=== PATIENT | male | born 1985 | race African-American/Black ===

== ENCOUNTER 2025-07-09 20:14 | Inpatient (IN) | payer SELFPAY ==
[2025-07-09] MEDS ORDERED: Dexamethasone 10 MG/ML VIAL ONE ×2 (20:49→20:58)
[2025-07-09] MEDS ORDERED: diphenhydrAMINE 50 MG/ML VIAL ONE (22:36)
[2025-07-10] MEDS ORDERED: Famotidine/PF 20 mg/2ml Vial ONE (00:41)
[2025-07-10 01:19] LABS: #Basophils 0.03 10x3/uL (0.0-0.2); #Eosinophils Less than 0.03 10x3/uL (0.0-0.7); #Monocytes 0.27 10x3/uL (0.11-0.59); #Neutrophils 12.74 10x3/uL (1.40-6.50); %Basophils 0.2 % (0.0-1.0); %Eosinophils 0.0 % (0.0-10.0); %Lymphocytes 4.7 % (21.0-51.0); %Monocytes 2.0 % (0.0-10.0); %Neutrophils 92.7 % (42.0-75.0); Hematocrit 52.6 % (42.0-52.0); Hemoglobin 18.3 g/dL (14.0-18.0); Mean Corpuscular Hemoglobin 32.6 pg (27.0-31.0); Mean Corpuscular Volume 93.6 fL (78.0-98.0); Platelet Count 291 10x3/uL (130-400); Red Blood Cell (RBC) Count 5.62 mill/uL (4.70-6.10); White Blood Cell (WBC) Count 13.74 10x3/uL (4.8-10.8)
[2025-07-10 01:36] LABS: ALT (SGPT) 16 U/L (Less than 45); AST (SGOT) 24 U/L (11-34); Albumin 3.5 g/dL (3.1-4.5); Alkaline Phosphatase 46 U/L (40-110); Anion Gap 16 mmol/L (10-20); BUN (Urea Nitrogen) 19 mg/dL (8.9-20.6); Bilirubin, Total 0.7 mg/dL (0.3-1.2); CK (CPK) 326 U/L (30-200); Calc. Creatinine Clearance 0 mL/min (70-130); Calcium 8.5 mg/dL (7.8-10.44); Carbon Dioxide 21 mmol/L (22-29); Chloride 101 mmol/L (98-107); Globulin 2.8 g/dL (2.4-3.5); Glucose 210 mg/dL (70-105); Potassium 3.8 mmol/L (3.5-5.1); Sodium 134 mmol/L (136-145)
[2025-07-10] MEDS ORDERED: Acetaminophen 325 MG TAB PO PRN (01:42)
[2025-07-10] MEDS ORDERED: Senokot S 8.6-50 MG TAB PO PRN (01:42)
[2025-07-10] MEDS ORDERED: Ondansetron PF 4 MG/2 ML Vial IVP PRN (01:42)
[2025-07-10 02:53] VITALS: BMI 24.3
[2025-07-10] MEDS: diphenhydrAMINE 50 MG/ML VIAL IVP SCH (03:20)
[2025-07-10 03:35] LABS: #Basophils Less than 0.03 10x3/uL (0.0-0.2); #Eosinophils Less than 0.03 10x3/uL (0.0-0.7); #Monocytes 0.25 10x3/uL (0.11-0.59); #Neutrophils 12.00 10x3/uL (1.40-6.50); %Basophils 0.2 % (0.0-1.0); %Eosinophils 0.1 % (0.0-10.0); %Lymphocytes 5.5 % (21.0-51.0); %Monocytes 1.9 % (0.0-10.0); %Neutrophils 91.7 % (42.0-75.0); Hematocrit 49.7 % (42.0-52.0); Hemoglobin 17.1 g/dL (14.0-18.0); Mean Corpuscular Hemoglobin 32.4 pg (27.0-31.0); Mean Corpuscular Volume 94.3 fL (78.0-98.0); Platelet Count 295 10x3/uL (130-400); Red Blood Cell (RBC) Count 5.27 mill/uL (4.70-6.10); White Blood Cell (WBC) Count 13.08 10x3/uL (4.8-10.8)
[2025-07-10 03:57] LABS: Anion Gap 14 mmol/L (10-20); BUN (Urea Nitrogen) 16 mg/dL (8.9-20.6); Calc. Creatinine Clearance 114 mL/min (70-130); Calcium 8.1 mg/dL (7.8-10.44); Carbon Dioxide 19 mmol/L (22-29); Chloride 104 mmol/L (98-107); Glucose 186 mg/dL (70-105); Potassium 3.8 mmol/L (3.5-5.1); Sodium 133 mmol/L (136-145)
[2025-07-10] MEDS ORDERED: predniSONE 20 MG TAB PO SCH (08:00)
[2025-07-10] MEDS: Famotidine 20 MG TAB PO SCH (08:35)
[2025-07-10] MEDS: Enoxaparin 40 MG (0.4 mL) SYRINGE SC SCH (08:35)
[2025-07-10] MEDS ORDERED: Calcium Carbonate 500 MG ChewTAB PO PRN (16:21)
[2025-07-10] MEDS: Mag-Al 1200 mg/1200 mg/30 ML UDCUP PO SCH (16:59)
[2025-07-10] MEDS: Calcium Carbonate 500 MG ChewTAB PO PRN (16:59)
[2025-07-10] MEDS: Melatonin 3 MG TAB PO PRN (21:38)
[2025-07-11 04:25] LABS: #Basophils Less than 0.03 10x3/uL (0.0-0.2); #Eosinophils Less than 0.03 10x3/uL (0.0-0.7); #Monocytes 0.81 10x3/uL (0.11-0.59); #Neutrophils 13.13 10x3/uL (1.40-6.50); %Basophils 0.1 % (0.0-1.0); %Eosinophils 0.0 % (0.0-10.0); %Lymphocytes 7.2 % (21.0-51.0); %Monocytes 5.4 % (0.0-10.0); %Neutrophils 86.8 % (42.0-75.0); Hematocrit 44.7 % (42.0-52.0); Hemoglobin 15.5 g/dL (14.0-18.0); Mean Corpuscular Hemoglobin 33.0 pg (27.0-31.0); Mean Corpuscular Volume 95.1 fL (78.0-98.0); Platelet Count 257 10x3/uL (130-400); Red Blood Cell (RBC) Count 4.70 mill/uL (4.70-6.10); White Blood Cell (WBC) Count 15.10 10x3/uL (4.8-10.8)
[2025-07-11 04:40] LABS: Anion Gap 10 mmol/L (10-20); BUN (Urea Nitrogen) 12 mg/dL (8.9-20.6); Calc. Creatinine Clearance 110 mL/min (70-130); Calcium 8.8 mg/dL (7.8-10.44); Carbon Dioxide 25 mmol/L (22-29); Chloride 104 mmol/L (98-107); Glucose 125 mg/dL (70-105); Potassium 4.4 mmol/L (3.5-5.1); Sodium 135 mmol/L (136-145)
[2025-07-11 12:14] VITALS: TEMP 98
== END 2025-07-11 12:37 | disposition home or self-care (01) | DRG 918 ==
LOC: ERS 20:14 → CCU 07-10 01:42
PROVIDERS: ADMIT Internal Medicine; ATTEND Hospitalist
PROC: 3E033XZ Introduction of Vasopressor into Peripheral Vein, Percutaneous Approach (ICD-10-PCS; principal; 2025-07-10)
DX: T63.461A Toxic effect of venom of wasps, accidental (unintentional), initial encounter (principal); T78.2XXA Anaphylactic shock, unspecified, initial encounter; E87.20 Acidosis, unspecified; D72.829 Elevated white blood cell count, unspecified; R73.9 Hyperglycemia, unspecified; Z79.82 Long term (current) use of aspirin
CPT/HCPCS: 36415; 80048; 80053; 82550; 83605; 85025; 96365; 96372; 96375; J0169; J1100; J1200; J1308; J1650; J2919; J3490; J7030